=== PATIENT | female | born 1945 | race Caucasian/White ===

== ENCOUNTER 2016-12-26 18:02 | Emergency (ER) | payer OTHER ==
--- NOTE | 2016-12-27 01:57 | ED CLINICAL REPORT ---
Clinical Report - Physicians/Mid Levels [facility] [address] [place] [address] 12/26/2016 18:02 Patient: ALEKSANDRA LANDIN *This is a preliminary document and is subject to change Time Seen: 18:39; initial patient contact. Arrived- By ambulance. Historian- patient. History limited by intoxication. Physical Exam limited by intoxication. CPT: ER phys charges level 5 (#[id number]). HISTORY OF PRESENT ILLNESS Chief Complaint: DEPRESSED and SUICIDAL ATTEMPT. This started today. No recent drug use or alcohol consumption. Has been depressed and had suicidal thoughts. The symptoms are described as moderate. No injury is present. 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 Has voiced that she wants to multiple times. Similar symptoms previously: None. Recent medical care: Not recently seen/assessed. REVIEW OF SYSTEMS No headache, chest pain, palpitations, abdominal pain or vomiting. No diarrhea. All systems otherwise negative, except as recorded above. PAST HISTORY ( Depression. Hypothyroidism. Headache. Restless Legs Syndrome. Seizure. SURGERIES: Back Surgery. Gallbladder Surgery). Medications: Levothyroxine Sodium Oral 150 mcg, daily. Phenobarbital 64.8 mg QD. Sertraline 50 mg PO daily. Vimpat PO 200 MG. 150 Wqrtbetcpd-QDL-Ayzs-Codeine PO QID. Allergies: No Known Drug Allergy. SOCIAL HISTORY Current every day smoker. No alcohol use or drug use. Has social support. Has place to stay. 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 ADDITIONAL NOTES The nursing notes have been reviewed. PHYSICAL EXAM Vital Signs: 12/26/2016 18:09 BP: 146/66. HR: 75. RR: 16. O2 saturation: 93%. Have been reviewed. Hypertensive. Heart rate normal. Respiratory rate normal. Temperature normal. Oxygen saturation low. Appearance: Patient is in mild distress. Is disheveled and has poor hygiene. Lethargic. CVS: Normal heart rate and rhythm. Heart sounds normal. Respiratory: Breath sounds normal. Chest nontender. Abdomen: Soft and nontender. Skin: Skin warm and dry. Normal skin color. Extremities: No lower extremity edema. Psych / Neuro: Flat affect. She expresses suicidal thoughts and a specific plan. She does not appear to understand hers illness or feel treatment is necessary. She seems unconcerned about hers current condition. LABS, X-RAYS, AND EKG Laboratory Tests: UA-Culture if indicated: (CLINT: 12/26/2016 19:20) ( [facility] [place] 19:47[place] Final results Test Result Flag Units (Reference) URINE COLOR YELLOW URINE APPEARANCE CLEAR URINE GLUCOSE NEGATIVE (NEGATIVE) URINE BILIRUBIN NEGATIVE (NEGATIVE) URINE KETONE NEGATIVE (NEGATIVE) URINE SPECIFIC GRAVITY 1.010 (1.010-1.030) URINE PH 6.0 (5.0-8.0) URINE PROTEIN NEGATIVE (NEGATIVE) URINE UROBILINOGEN 0.2 EU/dL (0.2-1.0) URINE NITRITE NEGATIVE (NEGATIVE) URINE BLOOD NEGATIVE (NEGATIVE) URINE LEUK ESTERASE NEGATIVE (NEGATIVE) URINE RBC NONE SEEN rbc/hpf (0-1) URINE WBC 0-1 wbc/hpf (0-1) URINE EPITHELIAL CELLS 0-1 EPI/hpf (0-5) URINE BACTERIA NONE SEEN (NONE SEEN) URINE COMMENT CULT NOT INDICATED URINE CULTURES ARE SET-UP BASED ON THE FOLLOWING CRITERIA:POSITIVE NITRITEPOSITIVE LEUKOCYTE ESTERASEGREATER THAN 10 WHITE BLOOD CELLSMODERATE (2+) OR GREATER BACTERIA CBC w Diff: (CLINT: 12/26/2016 18:15) ( [facility] [place] 12/26/2016 19:19) Final results Test Result Flag Units (Reference) WHITE BLOOD COUNT 9.5 K/uL (4.5-11.5) RED BLOOD COUNT 3.92 L M/uL (4.00-5.20) HEMOGLOBIN 11.1 L gm/dL (12.0-16.0) HEMATOCRIT 34.3 L % (36.0-46.0) MEAN CELL VOLUME 88 fL (80-100) MEAN CORPUSCULAR HGB 28 pg (26-34) MEAN CORPUSCULAR HGB CONC 33 g/dL (31-37) RED CELL DISTRIBUTION WIDTH 16.3 H % (11.6-14.8) PLATELET COUNT 257 K/uL (150-400) NEUTROPHIL % 72.1 % (50-75) LYMPH % 18.0 L % (25-40) MONO % 5.9 % (3-14) EOSINOPHIL % 2.2 % (0-4) BASOPHIL % 1.8 % (0-2) Urine Drug Screen: (CLINT: 12/26/2016 19:20) ( [facility] 12/26/2016 19:53) Final results Test Result Flag Units (Reference) AMPHETAMINE/METHAMPHETAMINE NEGATIVE (NEGATIVE) BARBITURATE POSITIVE H (NEGATIVE) BENZODIAZEPINE NEGATIVE (NEGATIVE) CANNABINOID NEGATIVE (NEGATIVE) COCAINE NEGATIVE (NEGATIVE) ECSTASY NEGATIVE (NEGATIVE) METHADONE NEGATIVE (NEGATIVE) OPIATE POSITIVE H (NEGATIVE) The urine drug screen is a qualitative screening test fordrug overdose and abuse. All screen results should beconsidered as presumptive.Drugs screened for are as follows:BenzodiazepinesCocaineAmphetamines/MetamphetaminesTHC (Tetrahydrocannabinol)OpiatesBarbituratesEcstasyMethadonePositive results are unconfirmed. For confirmation, notifythe lab for the specimen to be sent to the reference lab.All confirmations must be performed by a differentmethodology.The ingestion of natural herbal and plant productscontaining Ephedra/Ephedra metabolites can produce in urineone or more substances capable of cross reacting withamphetamine/methamphetamine immunoassays. These testsprovide a preliminary result only. A more specificalternative chemical method must be used to obtain aconfirmed analytical result. Salicylate Level: (CLINT: 12/26/2016 18:15) ( [facility] 12/26/2016 19:59) Final results Test Result Flag Units (Reference) SALICYLATE 25.9 H mg/dL (2.8-20) CMP: (CLINT: 12/26/2016 18:15) ( [facility] 12/26/2016 19:58) Final results Test Result Flag Units (Reference) GLUCOSE 99 mg/dL (70-110) BUN 14 mg/dL (7-18) CREATININE 1.0 mg/dL (0.6-1.3) Estimated GFR 57.93 mL/min Estimated GFR- >60 mL/min Note: Persistent reduction over 3 months in eGFR<60 mL/min/1.73 m2 defines CKD. Patients with eGFR values>=60 mL/min/1.73 m2 may also have CKD if evidence ofpersistent proteinuria. Additional information may be foundat www.kidney.org. SODIUM 139 mmol/L (136-145) POTASSIUM 3.3 L mmol/L (3.5-5.1) CHLORIDE 102 mmol/L (98-107) CARBON DIOXIDE 22 mmol/L (21-32) CALCIUM 8.6 mg/dL (8.5-10.1) TOTAL PROTEIN 7.4 g/dL (6.4-8.2) ALBUMIN 3.9 g/dL (3.3-5.0) BILIRUBIN, TOTAL 0.2 mg/dL (0.0-1.0) ALKALINE PHOSPHATASE 116 U/L (46-116) AST (SGOT) 25 U/L (15-37) ALT (SGPT) 20 U/L (12-78) ACETAMINOPHEN < 2.0 L ug/mL (10-30) ETHYL ALCOHOL < 3 L mg/dL (3-10) . PROGRESS AND PROCEDURES Course of Care: 01:47 12/27/16. Pt is alert and medically cleared. PAT team has evaluated and has cleared her for release to daughter who is driving her to stay with Son in [place]. Patient/family counseled. Disposition: Discharged. Condition: stable. CLINICAL IMPRESSION Suicidal ideation Suicide attempt Poor medication compliance. INSTRUCTIONS Stay with responsible adult family member (or other responsible adult) until released. (See psychiatrist within one week, when get back to [place].). Warnings: Further evaluation is necessary. GENERAL WARNINGS: Return or contact your physician immediately if your condition worsens or changes unexpectedly, if not improving as expected, or if other problems arise. Your Current Medications: STOP TAKING THE FOLLOWING MEDICATIONS: 150 Xijpsavqzt-OXL-Pzsr-Codeine PO QID*. Phenobarbital 64.8 mg QD*. CONTINUE TAKING THE FOLLOWING MEDICATIONS: Levothyroxine Sodium Oral : 150 mcg daily. Sertraline 50 mg PO daily*. Vimpat PO 200 MG*. Follow-up: Follow up with your doctor in one week. Call for an appointment. Understanding of the discharge instructions verbalized by patient. Brennan Tamayo MD
--- NOTE | 2016-12-27 01:57 | ED CLINICAL REPORT ---
Clinical Report - Physicians/Mid Levels [facility] [address] [place] [address] 12/26/2016 18:02 Patient: ALEKSANDRA LANDIN *This is a preliminary document and is subject to change Time Seen: 18:39; initial patient contact. Arrived- By ambulance. Historian- patient. History limited by intoxication. Physical Exam limited by intoxication. CPT: ER phys charges level 5 (#[id number]). HISTORY OF PRESENT ILLNESS Chief Complaint: DEPRESSED and SUICIDAL ATTEMPT. This started today. No recent drug use or alcohol consumption. Has been depressed and had suicidal thoughts. The symptoms are described as moderate. No injury is present. 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 Has voiced that she wants to multiple times. Similar symptoms previously: None. Recent medical care: Not recently seen/assessed. REVIEW OF SYSTEMS No headache, chest pain, palpitations, abdominal pain or vomiting. No diarrhea. All systems otherwise negative, except as recorded above. PAST HISTORY ( Depression. Hypothyroidism. Headache. Restless Legs Syndrome. Seizure. SURGERIES: Back Surgery. Gallbladder Surgery). Medications: Levothyroxine Sodium Oral 150 mcg, daily. Phenobarbital 64.8 mg QD. Sertraline 50 mg PO daily. Vimpat PO 200 MG. 150 Jrqyqpuwcr-CVC-Ufbe-Codeine PO QID. Allergies: No Known Drug Allergy. SOCIAL HISTORY Current every day smoker. No alcohol use or drug use. Has social support. Has place to stay. 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 ADDITIONAL NOTES The nursing notes have been reviewed. PHYSICAL EXAM Vital Signs: 12/26/2016 18:09 BP: 146/66. HR: 75. RR: 16. O2 saturation: 93%. Have been reviewed. Hypertensive. Heart rate normal. Respiratory rate normal. Temperature normal. Oxygen saturation low. Appearance: Patient is in mild distress. Is disheveled and has poor hygiene. Lethargic. CVS: Normal heart rate and rhythm. Heart sounds normal. Respiratory: Breath sounds normal. Chest nontender. Abdomen: Soft and nontender. Skin: Skin warm and dry. Normal skin color. Extremities: No lower extremity edema. Psych / Neuro: Flat affect. She expresses suicidal thoughts and a specific plan. She does not appear to understand hers illness or feel treatment is necessary. She seems unconcerned about hers current condition. LABS, X-RAYS, AND EKG Laboratory Tests: UA-Culture if indicated: (CLINT: 12/26/2016 19:20) ( [facility] [place] 19:47) Final results Test Result Flag Units (Reference) URINE COLOR YELLOW URINE APPEARANCE CLEAR URINE GLUCOSE NEGATIVE (NEGATIVE) URINE BILIRUBIN NEGATIVE (NEGATIVE) URINE KETONE NEGATIVE (NEGATIVE) URINE SPECIFIC GRAVITY 1.010 (1.010-1.030) URINE PH 6.0 (5.0-8.0) URINE PROTEIN NEGATIVE (NEGATIVE) URINE UROBILINOGEN 0.2 EU/dL (0.2-1.0) URINE NITRITE NEGATIVE (NEGATIVE) URINE BLOOD NEGATIVE (NEGATIVE) URINE LEUK ESTERASE NEGATIVE (NEGATIVE) URINE RBC NONE SEEN rbc/hpf (0-1) URINE WBC 0-1 wbc/hpf (0-1) URINE EPITHELIAL CELLS 0-1 EPI/hpf (0-5) URINE BACTERIA NONE SEEN (NONE SEEN) URINE COMMENT CULT NOT INDICATED URINE CULTURES ARE SET-UP BASED ON THE FOLLOWING CRITERIA:POSITIVE NITRITEPOSITIVE LEUKOCYTE ESTERASEGREATER THAN 10 WHITE BLOOD CELLSMODERATE (2+) OR GREATER BACTERIA CBC w Diff: (CLINT: 12/26/2016 18:15) ( [facility] [place] 19:19) Final results Test Result Flag Units (Reference) WHITE BLOOD COUNT 9.5 K/uL (4.5-11.5) RED BLOOD COUNT 3.92 L M/uL (4.00-5.20) HEMOGLOBIN 11.1 L gm/dL (12.0-16.0) HEMATOCRIT 34.3 L % (36.0-46.0) MEAN CELL VOLUME 88 fL (80-100) MEAN CORPUSCULAR HGB 28 pg (26-34) MEAN CORPUSCULAR HGB CONC 33 g/dL (31-37) RED CELL DISTRIBUTION WIDTH 16.3 H % (11.6-14.8) PLATELET COUNT 257 K/uL (150-400) NEUTROPHIL % 72.1 % (50-75) LYMPH % 18.0 L % (25-40) MONO % 5.9 % (3-14) EOSINOPHIL % 2.2 % (0-4) BASOPHIL % 1.8 % (0-2) Urine Drug Screen: (CLINT: 12/26/2016 19:20) ( [facility] 12/26/2016 19:53) Final results Test Result Flag Units (Reference) AMPHETAMINE/METHAMPHETAMINE NEGATIVE (NEGATIVE) BARBITURATE POSITIVE H (NEGATIVE) BENZODIAZEPINE NEGATIVE (NEGATIVE) CANNABINOID NEGATIVE (NEGATIVE) COCAINE NEGATIVE (NEGATIVE) ECSTASY NEGATIVE (NEGATIVE) METHADONE NEGATIVE (NEGATIVE) OPIATE POSITIVE H (NEGATIVE) The urine drug screen is a qualitative screening test fordrug overdose and abuse. All screen results should beconsidered as presumptive.Drugs screened for are as follows:BenzodiazepinesCocaineAmphetamines/MetamphetaminesTHC (Tetrahydrocannabinol)OpiatesBarbituratesEcstasyMethadonePositive results are unconfirmed. For confirmation, notifythe lab for the specimen to be sent to the reference lab.All confirmations must be performed by a differentmethodology.The ingestion of natural herbal and plant productscontaining Ephedra/Ephedra metabolites can produce in urineone or more substances capable of cross reacting withamphetamine/methamphetamine immunoassays. These testsprovide a preliminary result only. A more specificalternative chemical method must be used to obtain aconfirmed analytical result. Salicylate Level: (CLINT: 12/26/2016 18:15) ( [facility] 12/26/2016 19:59) Final results Test Result Flag Units (Reference) SALICYLATE 25.9 H mg/dL (2.8-20) CMP: (CLINT: 12/26/2016 18:15) ( [facility] 12/26/2016 19:58) Final results Test Result Flag Units (Reference) GLUCOSE 99 mg/dL (70-110) BUN 14 mg/dL (7-18) CREATININE 1.0 mg/dL (0.6-1.3) Estimated GFR 57.93 mL/min Estimated GFR- >60 mL/min Note: Persistent reduction over 3 months in eGFR<60 mL/min/1.73 m2 defines CKD. Patients with eGFR values>=60 mL/min/1.73 m2 may also have CKD if evidence ofpersistent proteinuria. Additional information may be foundat www.kidney.org. SODIUM 139 mmol/L (136-145) POTASSIUM 3.3 L mmol/L (3.5-5.1) CHLORIDE 102 mmol/L (98-107) CARBON DIOXIDE 22 mmol/L (21-32) CALCIUM 8.6 mg/dL (8.5-10.1) TOTAL PROTEIN 7.4 g/dL (6.4-8.2) ALBUMIN 3.9 g/dL (3.3-5.0) BILIRUBIN, TOTAL 0.2 mg/dL (0.0-1.0) ALKALINE PHOSPHATASE 116 U/L (46-116) AST (SGOT) 25 U/L (15-37) ALT (SGPT) 20 U/L (12-78) ACETAMINOPHEN < 2.0 L ug/mL (10-30) ETHYL ALCOHOL < 3 L mg/dL (3-10) . PROGRESS AND PROCEDURES Course of Care: 01:47 12/27/16. Pt is alert and medically cleared. PAT team has evaluated and has cleared her for release to daughter who is driving her to stay with Son in [place]. Patient/family counseled. Disposition: Discharged. Condition: stable. CLINICAL IMPRESSION Suicidal ideation Suicide attempt Poor medication compliance. INSTRUCTIONS Stay with responsible adult family member (or other responsible adult) until released. (See psychiatrist within one week, when get back to [place].). Warnings: Further evaluation is necessary. GENERAL WARNINGS: Return or contact your physician immediately if your condition worsens or changes unexpectedly, if not improving as expected, or if other problems arise. Your Current Medications: STOP TAKING THE FOLLOWING MEDICATIONS: 150 Ewqremaeqr-XKQ-Bagv-Codeine PO QID*. Phenobarbital 64.8 mg QD*. CONTINUE TAKING THE FOLLOWING MEDICATIONS: Levothyroxine Sodium Oral : 150 mcg daily. Sertraline 50 mg PO daily*. Vimpat PO 200 MG*. Follow-up: Follow up with your doctor in one week. Call for an appointment. Understanding of the discharge instructions verbalized by patient. Brennan Tamayo MD
--- NOTE | 2016-12-27 01:57 | ED ORDER SUMMARY ---
..... Patient: ALEKSANDRA LANDIN OrderSheet [facility] VisitID: [id number] [place] [address] 71y, F Registration Date/Time: 12/26/2016 ORDER SHEET Weight: 58.9 kg (estimated) Allergies: No Known Drug Allergy GENERAL ORDERS: CBC w Diff Urgent (19:00 12/26/2016 [place]) (Ack 19:01 TBergley) (19:01 TBergley) CMP Urgent (19:12/26/2016 [place]) (Ack 19:01 TBergley) (19:02 TBergley) UA-Culture if indicated Urgent (:00 12/26/2016 [place]) (Ack 19:01 TBergley) (19:23 Zoëk R.N.) Urine Drug Screen Urgent (19:00 12/26/2016 [place]) (Ack 19:01 TBergley) (19:23 MCtiffaniek R.N.) Ethyl Alcohol Urgent (19:00 12/26/2016 [place]) (Ack 19:01 TBergley) (19:02 TBergley) Salicylate Level Urgent (19:00 12/26/2016 [place]) (Ack 19:01 TBergley) (19:02 TBergley) Acetaminophen Level Urgent (19:12/26/2016 [place]) (Ack 19:01 TBergley) (19:02 TBergley) MEDICATION ORDERS: Potassium Chloride PO 20 meq (NOW) (22:05 12/26/2016 [place]) (Ack 22:09 Wendi R.N.) (22:53 Venus R.N.) IV FLUIDS: Narcan IV 0.4 mg (NOW) (19:25 12/26/2016 VIKYook R.N. verbal order read back to [place]) (19:26 MCook R.N.) ORDER SHEET NOTES: This document has not been locked and should not be saved in the medical record.
--- NOTE | 2016-12-27 01:57 | ED ORDER SUMMARY ---
..... Patient: ALEKSANDRA LANDIN OrderSheet [facility] VisitID: [id number] [place] [address] 71y, F Registration Date/Time: 12/26/2016 ORDER SHEET Weight: 58.9 kg (estimated) Allergies: No Known Drug Allergy GENERAL ORDERS: CBC w Diff Urgent (19:00 12/26/2016 [place]) (Ack 19:01 TBergley) (19:01 TBergley) CMP Urgent (19:12/26/2016 [place]) (Ack 19:01 TBergley) (19:02 TBergley) UA-Culture if indicated Urgent (:00 12/26/2016 [place]) (Ack 19:01 TBergley) (19:23 Zoëk R.N.) Urine Drug Screen Urgent (19:00 12/26/2016 [place]) (Ack 19:01 TBergley) (19:23 MCtiffaniek R.N.) Ethyl Alcohol Urgent (19:00 12/26/2016 [place]) (Ack 19:01 TBergley) (19:02 TBergley) Salicylate Level Urgent (19:00 12/26/2016 [place]) (Ack 19:01 TBergley) (19:02 TBergley) Acetaminophen Level Urgent (19:12/26/2016 [place]) (Ack 19:01 TBergley) (19:02 TBergley) MEDICATION ORDERS: Potassium Chloride PO 20 meq (NOW) (22:05 12/26/2016 [place]) (Ack 22:09 Wendi R.N.) (22:53 Venus R.N.) IV FLUIDS: Narcan IV 0.4 mg (NOW) (19:25 12/26/2016 VIKYook R.N. verbal order read back to [place]) (19:26 MCook R.N.) ORDER SHEET NOTES: This document has not been locked and should not be saved in the medical record.
--- NOTE | 2016-12-27 01:57 | ED NURSING NOTES ---
Clinical Report - Nurses [facility] [address] [place] [address] 12/26/2016 18:02 Patient: ALEKSANDRA LANDIN TRIAGE Triage time 18:Dec 26 2016. --18:14 Rachid Ruiz R.N. 18:09 12/26/16. BP: 146/66. HR: 75. RR: 16. O2 saturation: 93% on room air. --18:14 Rachid Ruiz R.N. Acuity: LEVEL 4. Alert. FAYE COMA SCORE: [place] Coma Scale: 13- eyes open to voice (3); best verbal response- disoriented (4); best motor response- obeys commands (6). --18:23 Crystal Ann R.N. Chief Complaint: (Family suspects Pt has taken too much of her RLS Rx.). --18:33 Rachid Ruiz R.N. Weight: 58.9 kg estimated. Height/Length: 65 inches Estimated. BMI: 21.6. --18:22 Crystal Ann R.N. Medications 150 Wqgrshfcfn-ZBB-Fxnz-Codeine PO QID. --18:12 Rachid Ruiz R.N. Vimpat PO 200 MG. --18:12 Rachid Ruiz R.N. Sertraline 50 mg PO daily. --18:13 Rachid Ruiz R.N. Phenobarbital 64.8 mg QD. --18:13 Rachid Ruiz R.N. Levothyroxine Sodium Oral 150 mcg, daily. --18:15 Crystal Ann R.N. Allergies No Known Drug Allergy. --18:12 Rachid Ruiz R.N. History Arrived by EMS. Historian: EMS and patient. ( Family called EMS from Pt's home, concerned over Pt's apparent medication OD. She has been taking Butalbital-Codeine for RLS and pain r/t some falls she has sustained over the past few weeks. Family noticed she was lethargic today and disagreeable.). --18:14 Rachid Ruiz R.N. ( pt has erythemia/ abrasion on left [place] area.). PAST MEDICAL HX: ( Pt sleepy, poor historian at this time. No family present.). SOCIAL HX: Current every day heavy tobacco smoker- 1 pack per day. FALL RISK ASSESSMENT: Fall risk assessment completed per protocol. Risk factors identified include patient age greater than 65 years and impairment of cognition. Fall interventions initiated. Patient placed on stretcher. Brakes on Bed in low position. Patient visible from nurses' station and identified as a fall risk by ID band. Call light in reach of patient. Instructed not to get up without assistance. SKIN INTEGRITY ASSESSMENT: Skin integrity risk assessment was performed. Risk factors identified include restricted mobility, limited positioning assistance and altered level of consciousness. ANN FALL SCALE: Ann Fall Scale Score: 65 (45 or greater = High Risk). The patient has a history of falling (immediate or within the last 3 months), ambulates using crutches/cane/walker, forgets limitations. The patient's gait is weak during transfer. --18:23 Crystal Ann R.N. PROBLEMS: Depression. Hypothyroidism. Headache. Restless Legs Syndrome. Seizure. --19:24 Rachid Ruiz R.N. ADDITIONAL SURGERIES: Back Surgery. Gallbladder Surgery. --19:25 Rachid Ruiz R.N. Assessment The patient states feels the same. --18:23 Crystal Ann R.N. Interventions ID band on patient. --18:23 Crystal Ann R.N. PHYSICAL ASSESSMENT To room via stretcher. GENERAL / NEURO / PSYCH: Decreased awareness. The patient is disoriented to place, time and situation. Patient's mood/affect appears flat and angry. Poor eye contact. Patient appears agitated. Patient appears unkempt. RESPIRATORY: Respirations not labored. SKIN: Skin is warm. She has an abrasion (L [place]). --18:35 Rachid Ruiz R.N. NURSING PROGRESS NOTES ( Pt resting in room, lethargic, line of sight with nurse's station, belongings collected and placed in locker #1.). --18:37 Rachid Ruiz R.N. ( MD in to assess Pt. She is belligerent, cooperative with assistance, obviously lethargic, sats decreased to 86% on RA. Placed Pt on 2L 02 and adminsitered 0.4 mg Narcan per MD at bedside. Pt now more arousable, talking, answering questions, reporting pain to lower back.). --18:46 Rachid Ruiz R.N. 18:35 12/26/16. O2 saturation: 86% on room air. --18:55 Rachid Ruiz R.N. 18:50 12/26/16. O2 saturation: 95% at 2 liters/minute. Additional comments: post Narcan administration. --18:56 Rachid Ruiz R.N. ( Called Poison Control and discussed Pt's condition and medication list. Recommended supportive treatments. Blood in lab, monitoring of Pt in place. Granddaughter now at bedside at this time.). --19:02 Rachid Ruiz R.N. Patient ID band checked for patient name and birthdate: family confirmed. Catheterized urine collected; sample sent to lab for urinalysis and drug screen. Specimen labeled in the presence of the patient (first cath occluded with white discharge; 2nd cath urine was clear yellow). ( Pt is very belligerent, refusing cares, saying "No!" repeatedly to staff and anything granddaughter asks her. Able to obtain cath urine with 2 staff assisting. Pt lying in bed in room, saying "I just want to ". Direct line of sight with nursing station.). --19:23 Rachid Ruiz R.N. 18:40 12/26/2016 Site #1 started via IV in the left antecubital space with an 20g angiocath; one attempt. Saline lock flushed with 10 mL saline. --19:23 Rachid Ruiz R.N. 18:45 12/26/2016 Narcan (Naloxone HCl) IVP 0.4 mg given over 1 minute(s) via site #1. Allergies verified and confirmed 5 rights. IV patency established. IV site checked: no pain, redness, or swelling. IV flushed thoroughly pre- and post-medication administration. IVP given by RN (Medication administered at 1845. Verbal Order just now placed in computer but was originally given at bedside at [address] Nuno.). --19:26 Rachid Ruiz R.N. Care transferred and report given (to CORINNA Garcia). --19:32 Rachid Ruiz R.N. 20:27 12/26/16. BP: 126/49. HR: 76. RR: 16. O2 saturation: 96%. --20:37 Radha Sparks ( Pt sleeping quietly, granddaughter left to eat dinner, she is to come back later to help watch pt). --20:37 Radha Sparks ( Poison Control called regarding pt's salicylate levels, no orders recvd, ok to just give supportive care.). --21:01 Radha Sparks ( Granddaughter back, she is upset she cannot take pt to her son's house, she is requesting to know how the involuntary was made, it was explained that the ER Dr made that decision based on the scenario, she feels that this wouldn't have happened if the people responsible for her medications hadn't let her have access to them, i explained that although that is a good point, pt still chose to OD on them as proved by labs, pt also is stating repetitively that she wants to while in ED, granddaughter sts her Dad is the POA and can't he demand for her to be released, I explained that unfortunately his POA doesn't trump the involuntary. She left to drop off the pt's dog and run a few errands.). --21:39 Radha Sparks The patient is calm and sleeping. RESPIRATORY: No respiratory distress. Care transferred and report received (from CORINNA Garcia). --22:52 Blayne Ovalle R.N. 22:30 12/26/2016 Potassium Chloride (Potassium Chloride ER) PO Tablets 20 meq given. Allergies verified and confirmed 5 rights. --22:53 Blayne Ovalle R.N. 00:30. The patient is calm and resting quietly. RESPIRATORY: No respiratory distress. --02:32 Blayne Ovalle R.N. DISPOSITION / DISCHARGE Departure time: 228. Condition at departure: stable. The goals identified in the patient's plan of care were met. ( See Progress Note for last set of VS.). No learning barriers present. Discharge instructions provided and reviewed with the patient and family (Granddaughter (Trice Cartagena)). Patient and family verbalized understanding. Written instructions provided in [place]. Verbalized understanding (Trice Cartagena). ( Trice Cartagena (Granddaughter) is taking Aleksandra to son's house in [place] to oversee care at this time. She has been evaluated by the PAT team and found to be safe to go home with family for further care. Granddaughter has no questions and voices no concerns at this time.). The patient was discharged by the physician. She was discharged home and accompanied by family. She left the Emergency Department in a wheelchair and via private vehicle. Family member driving. FAYE COMA SCORE: [place] Coma Scale: 15- eyes open spontaneously (4); best verbal response- oriented x 4 (5); best motor response- obeys commands (6). --02:32 Blayne Ovalle R.N. 02:29 12/27/16. BP: deferred. HR: deferred. RR: deferred. O2 saturation: deferred. Temp: deferred. Pain level now deferred. --02:32 Blayne Ovalle R.N. Locked/Released at 12/27/2016 5:11 by Blayne Ovalle R.N.
--- NOTE | 2016-12-29 23:08 | ED MED RECONCILIATION SUMMARY ---
Patient: ALEKSANDRA LANDIN Medication Reconciliation Report [facility] VisitID: [id number] [address] [place] [address] 71y, F Registration Date/Time: 12/26/2016 Weight: 58.9 kg Height/Length: 65 in. BMI: 21.6 ALLERGIES: No Known Drug Allergy The patient's Home Medications are listed below: STOP TAKING THE FOLLOWING MEDICATIONS: 150 Sisrqalium-JKT-Njlp-Codeine PO QID Phenobarbital 64.8 mg QD CONTINUE TAKING THE FOLLOWING MEDICATIONS: Levothyroxine Sodium Oral 150 mcg, daily Sertraline 50 mg PO daily Vimpat PO 200 MG The source(s) of the original Home Medication information: Not obtained. The following Medications were given to the patient in the Emergency Department: Narcan [IVP] IVP 0.4 mg, administered: 12/26/2016 6:45:00 PM Potassium Chloride [PO] PO 20 meq, administered: 12/26/2016 10:30:00 PM The following Medications were prescribed to the patient: None.
--- NOTE | 2016-12-29 23:08 | ED MAR SUMMARY ---
..... Medication Administration Record [facility] [address] [place] [address] Patient: ALEKSANDRA LANDIN Visit ID: [id number] 71y, F Weight: 58.9 kg Height/Length: 65 in BMI: 21.6 ALLERGIES: No Known Drug Allergy Given 18:45 12/26/2016 Rachid Ruiz REloisa Medication Administered: NARCAN [IVP] (NALOXONE HCL), Dose: 0.4 mg IVP over 1 minute(s), Site: #1 left . Medication Ordered: Narcan IV 0.4 mg (NOW). Given 22:30 12/26/2016 Blayne Ovalle REloisa Medication Administered: POTASSIUM CHLORIDE [PO] (POTASSIUM CHLORIDE ER), Dose: 20 meq Tablets PO. Medication Ordered: Potassium Chloride PO 20 meq (NOW).
--- NOTE | 2016-12-29 23:08 | ED MAR SUMMARY ---
..... Medication Administration Record [facility] [address] [place] [address] Patient: ALEKSANDRA LANDIN Visit ID: [id number] 71y, F Weight: 58.9 kg Height/Length: 65 in BMI: 21.6 ALLERGIES: No Known Drug Allergy Given 18:45 12/26/2016 Rachid Ruiz REloisa Medication Administered: NARCAN [IVP] (NALOXONE HCL), Dose: 0.4 mg IVP over 1 minute(s), Site: #1 left . Medication Ordered: Narcan IV 0.4 mg (NOW). Given 22:30 12/26/2016 Blayne Ovalle REloisa Medication Administered: POTASSIUM CHLORIDE [PO] (POTASSIUM CHLORIDE ER), Dose: 20 meq Tablets PO. Medication Ordered: Potassium Chloride PO 20 meq (NOW).
--- NOTE | 2016-12-29 23:08 | ED MED RECONCILIATION SUMMARY ---
Patient: ALEKSANDRA LANDIN Medication Reconciliation Report [facility] VisitID: [id number] [address] [place] [address] 71y, F Registration Date/Time: 12/26/2016 Weight: 58.9 kg Height/Length: 65 in. BMI: 21.6 ALLERGIES: No Known Drug Allergy The patient's Home Medications are listed below: STOP TAKING THE FOLLOWING MEDICATIONS: 150 Hybtqnbcgw-ZOK-Ztcw-Codeine PO QID Phenobarbital 64.8 mg QD CONTINUE TAKING THE FOLLOWING MEDICATIONS: Levothyroxine Sodium Oral 150 mcg, daily Sertraline 50 mg PO daily Vimpat PO 200 MG The source(s) of the original Home Medication information: Not obtained. The following Medications were given to the patient in the Emergency Department: Narcan [IVP] IVP 0.4 mg, administered: 12/26/2016 6:45:00 PM Potassium Chloride [PO] PO 20 meq, administered: 12/26/2016 10:30:00 PM The following Medications were prescribed to the patient: None.
--- NOTE | 2016-12-29 23:08 | ED DISCHARGE INSTRUCTIONS ---
Patient: ALEKSANDRA LANDIN General Instructions [facility] VisitID: [id number] [place] [address] 71y, F Registration Date/Time: 12/26/2016 Suicidal ideation Suicide attempt Poor medication compliance. INSTRUCTIONS Stay with responsible adult family member (or other responsible adult) until released. (See psychiatrist within one week, when get back to [place].). Warnings: Further evaluation is necessary. GENERAL WARNINGS: Return or contact your physician immediately if your condition worsens or changes unexpectedly, if not improving as expected, or if other problems arise. Your Current Medications: STOP TAKING THE FOLLOWING MEDICATIONS: 150 Ylftnmaicm-RCX-Jcnk-Codeine PO QID*. Phenobarbital 64.8 mg QD*. CONTINUE TAKING THE FOLLOWING MEDICATIONS: Levothyroxine Sodium Oral : 150 mcg daily. Sertraline 50 mg PO daily*. Vimpat PO 200 MG*. Follow-up: Follow up with your doctor in one week. Call for an appointment. Understanding of the discharge instructions verbalized by patient. ADDITIONAL INFORMATION Depression Depression is one of the most common mental health problems today. It is not just a state of unhappiness or sadness. It is a true disease. The cause seems to be related to a decrease in chemicals that transmit signals in the brain. Having a family history of depression, alcoholism or suicide increases the risk. Chronic illness, chronic pain, migraine headaches and high emotional stress also increase the risk. Depression can cause many different symptoms, such as: -- Loss of appetite -- Over-eating -- Not being able to sleep -- Sleeping too much -- Tiredness not related to physical exertion -- Restlessness or irritability -- Slowness of movement or speech -- Feeling depressed or withdrawn -- Loss of interest in things you once enjoyed -- Difficulty in concentrating, poor memory, have trouble making decisions -- Thoughts of harming or killing oneself, or thoughts that life is not worth living -- Low self-esteem The best treatment for depression is a combination of medicine and psychotherapy. Antidepressant medicines can reduce suffering and can improve the ability to function during the depressed period. Therapy can offer emotional support and help you understand emotional factors that may be causing the depression. Home Care: 1) Be kind to yourself. Make it a point to do things that you enjoy (gardening, walking in nature, going to a movie, etc.). Reward yourself for small successes. 2) Take care of your physical body. Eat a balanced diet (low in saturated fat and high in fruits and vegetables). Establish an exercise plan at least 3 times a week for 30 minutes. Even mild-moderate exercise (like brisk walking) can make you feel better. 3) Avoid alcohol, which can make depression worse. Follow-Up with your doctor as advised. It is important to keep in contact with a health care provider until your symptoms begin to improve. Get Prompt Medical Attention if any of the following occur: -- Feeling extreme depression, fear, anxiety, or anger toward yourself or others -- Feeling out of control -- Feeling that you may try to harm yourself or another -- Hearing voices that others do not hear -- Seeing things that others do not see -- Cant sleep or eat for 3 days in a row Overdose, Intentional (Adult: Psych Evaluation) You have been evaluated and treated for taking a drug or chemical product with the intent to harm yourself. There is no sign of a toxic effect at this time. It is not likely that any new symptoms will appear. As a safeguard, watch for new symptoms during the next 24 hours (see below). The exact symptom will depend on the type of drug or chemical taken. An intentional overdose is likely to be a sign that you are depressed, or that you are very angry with yourself or someone else. In order to reduce the risk of harming yourself, we will arrange for you to have a psychiatric evaluation. Home Care: If LIQUID CHARCOAL was given to neutralize what was swallowed, it will cause a black color to the stools for 1-2 days. Usually, a laxative (sorbitol) is given with charcoal to speed the removal of any toxins from the intestinal tract. This may cause diarrhea for up to 24 hours. If no laxative was given with charcoal, you may get constipated. If this occurs, you may take an zjax-uja-kqrmwee laxative such as Dulcolax pills or suppository. Follow Up with your doctor if all symptoms do not resolve within 24 hours or if constipation is not relieved by one or two doses of laxatives. If you are being discharged for immediate evaluation at a psychiatric hospital or clinic on a voluntary basis, you must go directly there with a responsible adult. If you have been placed on a legal 72 hour psychiatric hold, a ride to a psychiatric facility will be arranged for you. Get Prompt Medical Attention if any of the following occur: Excess drowsiness or inability to be awakened Rapid heart beat, you feel shaky, or you have a seizure Fast breathing (over 25 breaths/minute) or slow breathing (less than 8 breaths/minute) Feeling shortness of breath Fever of 100.4F (38C) or higher, or as directed by your healthcare provider Vomiting or diarrhea for more than 24 hours Blood in stools or vomit (black or red color) Chest or abdominal pain Dizziness, weakness or fainting Thoughts of harming yourself again You have been given the following additional information: Depression Overdose, Intentional (Adult) Stay with responsible adult family member (or other responsible adult) until released. (Electronically signed by Brennan Tamayo MD 12/29/2016 23:08)
== END 2016-12-27 02:22 | disposition home or self-care (01) ==
LOC: ED SRH 18:02
DX: T14.91 Suicide attempt (principal); Z79.899 Other long term (current) drug therapy; E03.9 Hypothyroidism, unspecified; F17.210 Nicotine dependence, cigarettes, uncomplicated
CPT/HCPCS: 81460; 90004; 90100; 92010; 92760; 92761; 92762; 92763; 92764; 92765; 92766; 92767; 92780; 95059; 97000